=== PATIENT | male | born 1965 | race American Indian/Alaskan Native ===

== ENCOUNTER 2017-04-01 20:06 | Emergency (ER) | payer OTHER ==
[2017-04-01 20:53] LABS: Basophils % (Auto) 0.5 % (0.0-1.8); Eosinophils % (Auto) 3.9 % (0.0-4.3); Hemoglobin 12.8 gm/dl (11.8-15.2); Mean Corpuscular HGB Conc 33 % (32-34); Mean Corpuscular Hemoglobin 29 pg (28-32); Mean Corpuscular Volume 87 fl (84-94); Platelet Count 219 K/mm3 (140-440); Red Blood Count 4.47 M/mm3 (3.65-5.03); White Blood Count 7.5 K/mm3 (4.5-11.0)
[2017-04-01 21:03] LABS: INR 1.03 (0.87-1.13)
[2017-04-01 21:08] LABS: Alanine Aminotransferase 20 units/L (7-56); Albumin 4.2 g/dL (3.9-5); Albumin/Globulin Ratio 1.4 %; Alkaline Phosphatase 61 units/L (35-129); Anion Gap 15 mmol/L; BUN/Creatinine Ratio 18.75; Blood Urea Nitrogen 15 mg/dL (9-20); Calcium 8.9 mg/dL (8.4-10.2); Carbon Dioxide 27 mmol/L (22-30); Chloride 104.2 mmol/L (98-107); Glucose 100 mg/dL (75-100); Potassium 3.9 mmol/L (3.6-5.0); Sodium 142 mmol/L (137-145); Total Protein 7.1 g/dL (6.3-8.2)
--- NOTE | 2017-04-01 21:28 | Emergency Department Report ---
ED Extremity Problem HPI - General Chief complaint: Extremity Injury, Lower Stated complaint: SWOLLEN RT LEG Time Seen by Provider: 04/01/17 21:27 Source: patient Mode of arrival: Ambulatory Limitations: No Limitations - History of Present Illness Initial comments: Pt is a 51 yr old male with a h/o HTN who presents with R lower leg pain. Pt reports he banged his christina on the corner of the bed last week and now is c/o R leg pain, swelling, warmth, and calf pain. Pt reports concern for a blood clot. Otherwise no fevers, chills, HECTOR, dizziness, NVD, hempotysis, bleeding disorder, h/o DVT, CP, SOB, abd pain, difficutly with ambulation, travel, or sick contacts. - Related Data Previous Rx's Medication Instructions Recorded Last Taken Type Enoxaparin [Lovenox] 100 mg SUB-Q ONCE #10 syringe 04/01/17 Unknown Rx Lisinopril [Zestril TAB] 40 mg PO QDAY #30 tablet 04/01/17 Unknown Rx Metoprolol [Lopressor TAB] 25 mg PO QDAY #30 tablet 04/01/17 Unknown Rx Allergies Allergy/AdvReac Type Severity Reaction Status Date / Time No Known Allergies Allergy Verified 06/18/16 13:50 ED Review of Systems ROS: Stated complaint: SWOLLEN RT LEG Other details as noted in HPI Comment: All other systems reviewed and negative ED Past Medical Hx - Past Medical History Hx Hypertension: Yes (out of meds) Hx Psychiatric Treatment: Yes (ANXIETY) - Surgical History Past Surgical History?: No - Social History Smoking Status: Current Every Day Smoker Substance Use Type: Alcohol - Medications Home Medications: Home Medications Medication Instructions Recorded Confirmed Last Taken Type Enoxaparin [Lovenox] 100 mg SUB-Q ONCE #10 syringe 04/01/17 Unknown Rx Lisinopril [Zestril TAB] 40 mg PO QDAY #30 tablet 04/01/17 Unknown Rx Metoprolol [Lopressor TAB] 25 mg PO QDAY #30 tablet 04/01/17 Unknown Rx ED Physical Exam - General Limitations: No Limitations General appearance: alert, in no apparent distress - Head Head exam: Present: atraumatic, normocephalic - Eye Eye exam: Present: normal appearance - ENT ENT exam: Present: mucous membranes moist - Neck Neck exam: Present: normal inspection - Respiratory Respiratory exam: Present: normal lung sounds bilaterally. Absent: respiratory distress - Cardiovascular Cardiovascular Exam: Present: regular rate, normal rhythm. Absent: systolic murmur, diastolic murmur, rubs, gallop - GI/Abdominal GI/Abdominal exam: Present: soft, normal bowel sounds - Rectal Rectal exam: Present: deferred - Extremities Exam Extremities exam: Present: full ROM, tenderness, calf tenderness, other (Mild swelling of RLE below the knee, warm to touch) - Back Exam Back exam: Present: normal inspection - Neurological Exam Neurological exam: Present: alert, oriented X3 - Psychiatric Psychiatric exam: Present: normal affect, normal mood - Skin Skin exam: Present: warm, dry, intact, normal color. Absent: rash ED Course Vital Signs 04/01/17 20:20 Temperature 98.6 F Pulse Rate 78 Respiratory 20 Rate Blood Pressure 184/116 O2 Sat by Pulse 100 Oximetry ED Medical Decision Making - Lab Data Result diagrams: 04/01/17 20:31 04/01/17 20:31 - Medical Decision Making Discussion had with patient at the bedside. Will treat him for cellulitis and DVT given clinical history, evaluation, and elevated D-Dimer Pt to return tomorrow to have the US of his RLE done to evaluate for DVT. Pt understood and agrees with plan Critical care attestation.: If time is entered above; I have spent that time in minutes in the direct care of this critically ill patient, excluding procedure time. ED Disposition Clinical Impression: Leg pain, right, Suspected deep vein thrombosis (DVT), Cellulitis, HTN ( hypertension) Disposition: TO HOME OR SELFCARE Is pt being admited?: No Condition: Stable Instructions: Deep Venous Thrombosis (ED), Cellulitis (ED), Hypertension (ED), Chronic Hypertension (ED) Additional Instructions: Please return to the hospital tomorrow as an outpatient for your ultrasound of your leg Continue the blood clot medication (injections) and its very IMPORTANT for you to follow up with your PMD if you do have a DVT so you can be placed on intermediate blood thinners Continue all antibiotics till you finish them Prescriptions: Enoxaparin [Lovenox] 100 mg SUB-Q ONCE #10 syringe Lisinopril [Zestril TAB] 40 mg PO QDAY #30 tablet Metoprolol [Lopressor TAB] 25 mg PO QDAY #30 tablet Referrals: PRIMARY CARE, [Primary Care Provider] - 3-5 Days
[2017-04-01] MEDS ORDERED: LOVENOX SUB-Q ONE (21:44)
[2017-04-01] MEDS ORDERED: LOPRESSOR PO ONE (22:01)
[2017-04-01 22:45] VITALS: BP 166/90
== END 2017-04-01 22:44 | disposition home or self-care (01) ==
LOC: ED 20:06
DX: L03.115 Cellulitis of right lower limb (principal); I10 Essential (primary) hypertension; M79.661 Pain in right lower leg; F41.9 Anxiety disorder, unspecified; F17.200 Nicotine dependence, unspecified, uncomplicated
CPT/HCPCS: 36415; 80053; 85025; 85379; 85610; 96372; 99283; J1650

== ENCOUNTER 2017-04-02 13:30 | Outpatient (CLI) | payer OTHER ==
--- NOTE | 2017-04-04 07:39 | Vascular Lab Report ---
Right Lower Extremity Venous Duplex Study: Reason for Exam: Pain and swelling of the right lower extremity. Comments on the Right: All veins visualized are freely compressible without evidence of internal echogenicity. Flow is spontaneous and phasic throughout. No evidence of acute or chronic thrombus is seen in any of the vessels visualized. Soft tissue density noted in the right calf appears to be a fluid collection that could potentially represent a ruptured Adam's cyst. Comments on the Left: A limited duplex study was done of the proximal veins of the left lower extremity. All veins visualized are freely compressible without evidence of internal echogenicity. Flow is spontaneous and phasic throughout. No evidence of acute or chronic thrombus is seen in any of the vessels visualized. Impression: No evidence of acute or chronic deep venous thrombosis in the right lower extremity.
== END 2017-04-02 13:31 | disposition home or self-care (01) ==
LOC: VAS 13:30
PROVIDERS: ATTEND Emergency Medicine
DX: M79.604 Pain in right leg (principal); M79.89 Other specified soft tissue disorders; I10 Essential (primary) hypertension; F41.9 Anxiety disorder, unspecified; F17.200 Nicotine dependence, unspecified, uncomplicated

== ENCOUNTER 2017-10-01 20:10 | Emergency (ER) | payer OTHER ==
[2017-10-01] MEDS ORDERED: CATAPRES ONE (20:47)
[2017-10-01] MEDS ORDERED: CATAPRES PO ONE (20:48)
[2017-10-01 21:15] LABS: Basophils % (Auto) 0.5 % (0.0-1.8); Eosinophils # (Auto) 0.2 K/mm3 (0.0-0.4); Eosinophils % (Auto) 2.7 % (0.0-4.3); Hematocrit 41.1 % (35.5-45.6); Hemoglobin 13.6 gm/dl (11.8-15.2); Lymphocytes # (Auto) 3.3 K/mm3 (1.2-5.4); Lymphocytes % (Auto) 42.2 % (13.4-35.0); Mean Corpuscular HGB Conc 33 % (32-34); Mean Corpuscular Hemoglobin 29 pg (28-32); Mean Corpuscular Volume 87 fl (84-94); Monocytes # (Auto) 0.8 K/mm3 (0.0-0.8); Monocytes % (Auto) 9.6 % (0.0-7.3); Platelet Count 209 K/mm3 (140-440); Red Blood Count 4.71 M/mm3 (3.65-5.03); Red Cell Distribution Width 15.3 % (13.2-15.2)
[2017-10-01 21:29] LABS: BUN/Creatinine Ratio 19; Blood Urea Nitrogen 15 mg/dL (9-20); Calcium 9.1 mg/dL (8.4-10.2); Hemolysis Index 10
[2017-10-01 21:58] LABS: Bilirubin,Urine NEG (Negative); Blood,Urine NEG (Negative); Color,Urine Yellow (Yellow); Mucus,Urine FEW /HPF; Nitrite,Urine NEG (Negative); Protein,Urine <15 mg/dL mg/dL (Negative); Urobilinogen,Urine < 2.0 mg/dL (<2.0)
[2017-10-02 08:11] VITALS: BP 159/101
[2017-10-02] MEDS ORDERED: TYLENOL PO ONE (09:11)
[2017-10-02] MEDS ORDERED: MOTRIN PO ONE (09:11)
--- NOTE | 2017-10-02 09:15 | Emergency Department Report ---
ED General Adult HPI - General Chief complaint: Chest Pain Stated complaint: CHEST PAIN Time Seen by Provider: 10/02/17 06:53 Source: patient, RN notes reviewed, old records reviewed Mode of arrival: Ambulatory Limitations: No Limitations - History of Present Illness Initial comments: This is a 51-year-old male who was previously unknown to this provider, he has a past medical history of hypertension, and is poorly compliant with his antihypertensive medication, and he requests a refill on his lisinopril, 40 mg. Patient presents to the ER with multiple complaints. His first complaint is tingling and pain on the distal aspects of his left pinky , and left ring finger. This sensation is from the joint distal. It has been going on for a few days, it is constant, it does not have exacerbating or relieving factors and it does not radiate anywhere. His next complaint is left inguinal pain. It has been present for a few days, does not radiate anywhere, increases with palpation and decreases with rest. His next complaint is left posterior hamstring pain, and left lateral thigh pain. There is no calf pain. There is no calf swelling. No DVT or pulmonary embolus risk factors. His next complaint is left plantar foot pain. It does not radiate anywhere, increases with palpation, and it decreases with rest. His next complaint is left lateral pectoral wall pain. The pain does not radiate to the back, arms or neck. There is no vomiting, diaphoresis, and contrary to what is documented in triage nurse note, patient to me denies shortness of breath. This pain has been present for a few days. He does not have exacerbating or relieving factors with the exception of palpation which increases his pain. No recent cocaine use, no recent aspirin use -: Gradual Location: chest, abdomen, left, upper extremity, lower extremity Radiation: non-radiation Severity scale (0 -10): 5 Quality: aching Consistency: intermittent Improves with: other (per hi) Worsens with: other (per hpi) Associated Symptoms: denies: confusion, cough, diaphoresis, fever/chills, headaches, loss of appetite, malaise, nausea/vomiting, rash, seizure, shortness of breath, syncope, weakness - Related Data Previous Rx's Medication Instructions Recorded Last Taken Type Cephalexin [Keflex] 500 mg PO Q12HR #20 cap 04/01/17 Unknown Rx Enoxaparin [Lovenox] 100 mg SUB-Q ONCE #10 syringe 04/01/17 Unknown Rx Sulfamethoxazole/Trimethoprim 1 each PO BID #20 tablet 04/01/17 Unknown Rx [Bactrim DS TAB] HYDROcodone/APAP 5-325 [Dequincy 1 each PO Q6HR PRN #10 tablet 04/02/17 Unknown Rx 5/325] Acetaminophen [Tylenol Arthritis] 650 mg PO Q6HR PRN #30 tablet.er 10/02/17 Unknown Rx Aspirin [Aspirin BABY CHEW TAB] 81 mg PO QDAY #30 tab.chew 10/02/17 Unknown Rx Lisinopril [Zestril TAB] 40 mg PO QDAY #30 tablet 10/02/17 Unknown Rx Allergies Allergy/AdvReac Type Severity Reaction Status Date / Time No Known Allergies Allergy Verified 06/18/16 13:50 ED Review of Systems ROS: Stated complaint: CHEST PAIN Other details as noted in HPI ED Past Medical Hx - Past Medical History Previous Medical History?: Yes Hx Hypertension: Yes (out of meds) Hx Psychiatric Treatment: Yes (ANXIETY) - Social History Smoking Status: Current Every Day Smoker - Medications Home Medications: Home Medications Medication Instructions Recorded Confirmed Last Taken Type Cephalexin [Keflex] 500 mg PO Q12HR #20 cap 04/01/17 Unknown Rx Enoxaparin [Lovenox] 100 mg SUB-Q ONCE #10 syringe 04/01/17 Unknown Rx Sulfamethoxazole/Trimethoprim 1 each PO BID #20 tablet 04/01/17 Unknown Rx [Bactrim DS TAB] HYDROcodone/APAP 5-325 [Dequincy 1 each PO Q6HR PRN #10 tablet 04/02/17 Unknown Rx 5/325] Acetaminophen [Tylenol Arthritis] 650 mg PO Q6HR PRN #30 tablet.er 10/02/17 Unknown Rx Aspirin [Aspirin BABY CHEW TAB] 81 mg PO QDAY #30 tab.chew 10/02/17 Unknown Rx Lisinopril [Zestril TAB] 40 mg PO QDAY #30 tablet 10/02/17 Unknown Rx ED Physical Exam - General Limitations: No Limitations General appearance: alert, in no apparent distress - Head Head exam: Present: atraumatic, normocephalic - Eye Eye exam: Present: normal appearance, PERRL, EOMI. Absent: nystagmus - ENT ENT exam: Present: normal exam, normal orophraynx, mucous membranes moist, normal external ear exam - Neck Neck exam: Present: normal inspection, full ROM. Absent: tenderness, meningismus - Respiratory Respiratory exam: Present: normal lung sounds bilaterally, chest wall tenderness (reproducible left lateral pectoral wall pain.). Absent: respiratory distress - Cardiovascular Cardiovascular Exam: Present: regular rate, normal rhythm, normal heart sounds. Absent: systolic murmur, diastolic murmur, rubs, gallop - GI/Abdominal GI/Abdominal exam: Present: soft, normal bowel sounds. Absent: distended, tenderness, guarding, rebound, rigid, pulsatile mass - Rectal Rectal exam: Present: deferred - exam: Present: normal inspection. Absent: testicular tenderness External exam: Present: normal external exam, other (there is no testicular tenderness. There is normal testicular lie bilaterally. There is normal cremasteric reflex bilaterally.) - Extremities Exam Extremities exam: Present: normal inspection, full ROM, normal capillary refill , other (55 strength bilateral upper and lower extremities. Sensation intact to light touch, pinprick, proprioception in the bilateral upper and lower extremities. There is no long bony tenderness, and the compartments are soft, there is specifically no deficits in sensation on my exam in the left upper extremity in terms of the digits. The compartments are soft, there is no palpable cord, there is no inguinal adenopathy, the left leg is nontender, there is no swelling. There is left plantar foot tenderness, there is right plantar foot tenderness. Patient able to walk with a steady gait.). Absent: tenderness, pedal edema, joint swelling, calf tenderness - Back Exam Back exam: Present: normal inspection, full ROM. Absent: tenderness, CVA tenderness (R), paraspinal tenderness, vertebral tenderness - Neurological Exam Neurological exam: Present: alert, oriented X3, CN II-XII intact, normal gait, other (Extraocular movements intact. Tongue midline. No facial droop. Facial sensation intact to light touch in the V1, V2, V3 distribution bilaterally. 5 and 5 strength in 4 extremities.. Sensation is intact to light touch in 4 extremities.). Absent: motor sensory deficit - Psychiatric Psychiatric exam: Present: normal affect, normal mood - Skin Skin exam: Present: warm, dry, intact, normal color. Absent: rash ED Course Vital Signs 12/10/01/17 10/02/17 20:23 20:49 03:51 Temperature 97.8 F 98.0 F Pulse Rate 76 74 68 Respiratory 20 18 Rate Blood Pressure 190/107 190/107 177/89 O2 Sat by Pulse 99 99 Oximetry 10/02/17 10/02/17 07:01 08:01 Temperature Pulse Rate 55 L 52 L Respiratory 16 16 Rate Blood Pressure 157/83 159/101 O2 Sat by Pulse Oximetry ED Medical Decision Making - Lab Data Result diagrams: 10/01/17 20:49 10/01/17 20:49 Vital Signs 10/01/17 10/01/17 10/02/17 20:23 20:49 03:51 Temperature 97.8 F 98.0 F Pulse Rate 76 74 68 Respiratory 20 18 Rate Blood Pressure 190/107 190/107 177/89 O2 Sat by Pulse 99 99 Oximetry 10/02/17 10/02/17 07:01 08:01 Temperature Pulse Rate 55 L 52 L Respiratory 16 16 Rate Blood Pressure 157/83 159/101 O2 Sat by Pulse Oximetry Lab Results 10/01/17 10/01/17 10/01/17 Range/Units 20:49 20:49 21:32 WBC 7.9 (4.5-11.0) K/mm3 RBC 4.71 (3.65-5.03) M/mm3 Hgb 13.6 (11.8-15.2) gm/dl Hct 41.1 (35.5-45.6) % MCV 87 (84-94) fl MCH 29 (28-32) pg MCHC 33 (32-34) % RDW 15.3 H (13.2-15.2) % Plt Count 209 (140-440) K/mm3 Lymph % (Auto) 42.2 H (13.4-35.0) % [place] % (Auto) 9.6 H (0.0-7.3) % Eos % (Auto) 2.7 (0.0-4.3) % Baso % (Auto) 0.5 (0.0-1.8) % Lymph # 3.3 (1.2-5.4) K/mm3 [place] # 0.8 (0.0-0.8) K/mm3 Eos # 0.2 (0.0-0.4) K/mm3 Baso # 0.0 (0.0-0.1) K/mm3 Seg Neutrophils % 45.0 (40.0-70.0) % Seg Neutrophils # 3.6 (1.8-7.7) K/mm3 Sodium 139 (137-145) mmol/L Potassium 4.2 (3.6-5.0) mmol/L Chloride 101.9 (98-107) mmol/L Carbon Dioxide 24 (22-30) mmol/L Anion Gap 17 mmol/L BUN 15 (9-20) mg/dL Creatinine 0.8 (0.8-1.5) mg/dL Estimated GFR > 60 ml/min BUN/Creatinine Ratio 19 % Glucose 94 (75-100) mg/dL Calcium 9.1 (8.4-10.2) mg/dL Troponin T < 0.010 (0.00-0.029) ng/mL Urine Color Yellow (Yellow) Urine Turbidity Clear (Clear) Urine pH 6.0 (5.0-7.0) Ur Specific [place] 1.021 (1.003-1.030) Urine Protein <15 mg/dl (Negative) mg/dL Urine Glucose (UA) Neg (Negative) mg/dL Urine Ketones Neg (Negative) mg/dL Urine Blood Neg (Negative) Urine Nitrite Neg (Negative) Urine Bilirubin Neg (Negative) Urine Urobilinogen < 2.0 (<2.0) mg/dL Ur Leukocyte Esterase Neg (Negative) Urine WBC (Auto) 1.0 (0.0-6.0) /HPF Urine RBC (Auto) 2.0 (0.0-6.0) /HPF Urine Mucus Few /HPF 10/01/17 10/02/17 Range/Units 23:44 02:52 WBC (4.5-11.0) K/mm3 RBC (3.65-5.03) M/mm3 Hgb (11.8-15.2) gm/dl Hct (35.5-45.6) % MCV (84-94) fl MCH (28-32) pg MCHC (32-34) % RDW (13.2-15.2) % Plt Count (140-440) K/mm3 Lymph % (Auto) (13.4-35.0) % [place] % (Auto) (0.0-7.3) % Eos % (Auto) (0.0-4.3) % Baso % (Auto) (0.0-1.8) % Lymph # (1.2-5.4) K/mm3 [place] # (0.0-0.8) K/mm3 Eos # (0.0-0.4) K/mm3 Baso # (0.0-0.1) K/mm3 Seg Neutrophils % (40.0-70.0) % Seg Neutrophils # (1.8-7.7) K/mm3 Sodium (137-145) mmol/L Potassium (3.6-5.0) mmol/L Chloride (98-107) mmol/L Carbon Dioxide (22-30) mmol/L Anion Gap mmol/L BUN (9-20) mg/dL Creatinine (0.8-1.5) mg/dL Estimated GFR ml/min BUN/Creatinine Ratio % Glucose (75-100) mg/dL Calcium (8.4-10.2) mg/dL Troponin T < 0.010 < 0.010 (0.00-0.029) ng/mL Urine Color (Yellow) Urine Turbidity (Clear) Urine pH (5.0-7.0) Ur Specific [place] (1.003-1.030) Urine Protein (Negative) mg/dL Urine Glucose (UA) (Negative) mg/dL Urine Ketones (Negative) mg/dL Urine Blood (Negative) Urine Nitrite (Negative) Urine Bilirubin (Negative) Urine Urobilinogen (<2.0) mg/dL Ur Leukocyte Esterase (Negative) Urine WBC (Auto) (0.0-6.0) /HPF Urine RBC (Auto) (0.0-6.0) /HPF Urine Mucus /HPF - EKG Data 10/02/17 09:16 EKG #1 demonstrates sinus, 71 bpm, normal axis, normal intervals, not morphologically consistent with ST elevation myocardial infarction, EKG #2 was also unremarkable and unchanged. - Radiology Data Radiology results: pending - Medical Decision Making Differential diagnosis, including but not limited to: Arthritis, musculoskeletal pain, atypical presentation of acute coronary syndrome, fully controlled blood pressure, medication noncompliance Assessment and plan: 51-year-old male with complaint of left pinky and ring finger pain/numbness, left inguinal discomfort, left thigh and hamstring discomfort, left plantar flex discomfort, left lateral chest wall discomfort. Objectively speaking has an appropriate and normal neurologic examination, with numerous sensory modalities, including pinprick, light touch and proprioception are intact. Equal pulses in the bilateral upper and lower extremities, compartments are soft walks with a steady gait, no clinical evidence of cellulitis, infectious process or DVT, low risk by well's criteria, and no thromboembolic risk factors by history. Complains of left lateral pectoral wall pain, which is reproducible, troponin negative 3, EKG shows high left ventricular voltage, theclinicalhistoryandphysical,IfindthepatienttobelowriskbyTIMIscore, lowriskbyheartscore.Hislisinoprilwasrefilled,Iwill hold metoprolol given bradycardia. Case discussed with cardiology on-call, Dr. Ruth, he agrees that patient is suitable to follow up as an outpatient for his elevated blood pressure and atypical chest wall discomfort. Critical care attestation.: If time is entered above; I have spent that time in minutes in the direct care of this critically ill patient, excluding procedure time. ED Disposition Clinical Impression: Chest wall pain, Elevated blood pressure reading Disposition: DC-01 TO HOME OR SELFCARE Is pt being admited?: No Does the pt Need Aspirin: No Condition: Stable Instructions: Chest Pain (ED) Additional Instructions: Take the medications as directed. Follow-up with any of the listed cardiology groups/services within the next 3-5 days. Please note that blood pressure was elevated, and this easily followed up I primary care doctor or granulizing machine operator as recommended. Return to the ER right away with new pain, worsened pain, migration of pain, fevers, chills, lethargy, irritability, projectile vomiting, change in mental status, confusion, inability to tolerate liquid feeds. Please of the blood pressure was very elevated, and should be followed up as recommended. Please note further that long-term complications of hypertension and elevated blood pressure includes stroke, heart attack, disability, , paralysis, loss of quality of life. Therefore, it is very important to take her blood pressure medication. Please contact and illicit office support specialist, but the note that you were in the ER and they would like to have follow-up within the next week. I have specifically spoken to the granulizing machine operator Dr. Ruth, who is amenable to seeing you in the recommended timeframe. Prescriptions: Lisinopril [Zestril TAB] 40 mg PO QDAY #30 tablet Referrals: KEYON PENA MD [Primary Care Provider] - 3-5 Days JESSICA RUTH MD [Staff Physician] - 3-5 Days [facility] [Provider Group] - 3-5 Days [facility] [Provider Group] - 3-5 Days
== END 2017-10-02 09:38 | disposition home or self-care (01) ==
LOC: ED 20:10
DX: R07.89 Other chest pain (principal); I10 Essential (primary) hypertension; M79.672 Pain in left foot; M79.645 Pain in left finger(s); M79.652 Pain in left thigh; F17.200 Nicotine dependence, unspecified, uncomplicated; F41.9 Anxiety disorder, unspecified
CPT/HCPCS: 36415; 80048; 81001; 84484; 85025; 93005; 93010; 99284

== ENCOUNTER 2017-10-10 03:02 | Emergency (ER) | payer SELFPAY ==
[2017-10-10] MEDS ORDERED: CATAPRES ONE (03:32)
[2017-10-10] MEDS ORDERED: CATAPRES PO ONE (03:40)
[2017-10-10 04:10] LABS: Hematocrit 42.4 % (35.5-45.6); Hemoglobin 14.5 gm/dl (11.8-15.2); Mean Corpuscular HGB Conc 34 % (32-34); Mean Corpuscular Hemoglobin 29 pg (28-32); Mean Corpuscular Volume 86 fl (84-94); Platelet Count 197 K/mm3 (140-440); Red Blood Count 4.93 M/mm3 (3.65-5.03)
[2017-10-10 04:21] LABS: INR 0.91 (0.87-1.13)
[2017-10-10 04:22] LABS: Partial Thromboplastin Time 26.9 Sec. (24.2-36.6)
[2017-10-10 04:25] LABS: BUN/Creatinine Ratio 11; Blood Urea Nitrogen 10 mg/dL (9-20); Calcium 8.6 mg/dL (8.4-10.2); Hemolysis Index 11
--- NOTE | 2017-10-10 04:26 | Cat Scan Report ---
FINAL REPORT EXAM: CT HEAD/BRAIN WO CON HISTORY: Headache w/ BP 208/117 TECHNIQUE: CT imaging acquired through the head without intravenous contrast. Transaxial reformations are provided. PRIORS: None. FINDINGS: The ventricles, cisterns and sulci are within normal limits. No intraparenchymal or extra-axial mass, hemorrhage, or mass effect. Encarn[place] and white-matter differentiation is within normal limits for patient age. Normal spherical shape of the globes. No significant abnormality involving the imaged portions of the paranasal sinuses and mastoid air cells. No skull or facial fracture visualized. IMPRESSION: No acute intracranial abnormality.
--- NOTE | 2017-10-10 16:12 | Emergency Department Report ---
ED General Adult HPI - General Chief complaint: Headache Stated complaint: ALLERGIC REACTION Time Seen by Provider: 10/10/17 15:41 Source: patient Mode of arrival: Ambulatory Limitations: No Limitations - History of Present Illness Initial comments: The patient is here with I presume his . They have decided that his "lisinopril is not working'. According to them, he is taking 40 mg of plain lisinopril daily. They state he was previously on a diuretic and a calcium channel kvng which worked better. Over the past 3 days they state they have been monitoring the blood pressure and it has been elevated. The patient denies any tongue swelling. He has a "infected tooth". He does have some lip and perhaps some slight facial swelling which they are associated with a tooth or gum infection. He has never had any sort of angioedema or allergic reaction to an RHIANNON inhibitor in the past. In any case, clearly they do not want to continue his lisinopril. Patient has had some mild headache. He denies any focal neurological change, no difficulty with speech or gait or any visual change. He was given 0.2 of clonidine long prior to my arrival in the very early a.m. I 've taken his blood pressure on both sides there is no differential. It has been in the normal range for several readings now. -: days(s) Location: head Quality: dull Consistency: now resolved Improves with: none Worsens with: none Associated Symptoms: denies other symptoms Treatments Prior to Arrival: none - Related Data Previous Rx's Medication Instructions Recorded Last Taken Type Cephalexin [Keflex] 500 mg PO Q12HR #20 cap 04/01/17 Unknown Rx Enoxaparin [Lovenox] 100 mg SUB-Q ONCE #10 syringe 04/01/17 Unknown Rx Sulfamethoxazole/Trimethoprim 1 each PO BID #20 tablet 04/01/17 Unknown Rx [Bactrim DS TAB] HYDROcodone/APAP 5-325 [[place] 1 each PO Q6HR PRN #10 tablet 04/02/17 Unknown Rx 5/325] Acetaminophen [Tylenol Arthritis] 650 mg PO Q6HR PRN #30 tablet.er 10/02/17 Unknown Rx Aspirin [Aspirin BABY CHEW TAB] 81 mg PO QDAY #30 tab.chew 10/02/17 Unknown Rx Lisinopril [Zestril TAB] 40 mg PO QDAY #30 tablet 10/02/17 Unknown Rx Penicillin V Potassium 500 mg PO QID #30 tablet 10/10/17 Unknown Rx Triamterene/Hydrochlorothiazid 1 each PO QDAY #30 capsule 10/10/17 Unknown Rx [Dyazide 37.5-25 Capsule] amLODIPine [Norvasc] 5 mg PO DAILY #30 tab 10/10/17 Unknown Rx Allergies Allergy/AdvReac Type Severity Reaction Status Date / Time No Known Allergies Allergy Verified 06/18/16 13:50 ED Review of Systems ROS: Stated complaint: ALLERGIC REACTION Other details as noted in HPI Constitutional: denies: chills, fever Eyes: denies: eye pain, eye discharge, vision change ENT: denies: ear pain, throat pain Respiratory: denies: cough, shortness of breath, wheezing Cardiovascular: denies: chest pain, palpitations Endocrine: no symptoms reported Gastrointestinal: denies: abdominal pain, nausea, diarrhea Genitourinary: denies: urgency, dysuria Musculoskeletal: denies: back pain, joint swelling, arthralgia Skin: denies: rash, lesions Neurological: headache. denies: weakness, paresthesias Psychiatric: denies: anxiety, depression Hematological/Lymphatic: denies: easy bleeding, easy bruising ED Past Medical Hx - Past Medical History Previous Medical History?: Yes Hx Hypertension: Yes (out of meds) Hx Psychiatric Treatment: Yes (ANXIETY) - Social History Smoking Status: Unknown if ever smoked Substance Use Type: None - Medications Home Medications: Home Medications Medication Instructions Recorded Confirmed Last Taken Type Cephalexin [Keflex] 500 mg PO Q12HR #20 cap 04/01/17 Unknown Rx Enoxaparin [Lovenox] 100 mg SUB-Q ONCE #10 syringe 04/01/17 Unknown Rx Sulfamethoxazole/Trimethoprim 1 each PO BID #20 tablet 04/01/17 Unknown Rx [Bactrim DS TAB] HYDROcodone/APAP 5-325 [[place] 1 each PO Q6HR PRN #10 tablet 04/02/17 Unknown Rx 5/325] Acetaminophen [Tylenol Arthritis] 650 mg PO Q6HR PRN #30 tablet.er 10/02/17 Unknown Rx Aspirin [Aspirin BABY CHEW TAB] 81 mg PO QDAY #30 tab.chew 10/02/17 Unknown Rx Lisinopril [Zestril TAB] 40 mg PO QDAY #30 tablet 10/02/17 Unknown Rx Penicillin V Potassium 500 mg PO QID #30 tablet 10/10/17 Unknown Rx Triamterene/Hydrochlorothiazid 1 each PO QDAY #30 capsule 10/10/17 Unknown Rx [Dyazide 37.5-25 Capsule] amLODIPine [Norvasc] 5 mg PO DAILY #30 tab 10/10/17 Unknown Rx ED Physical Exam - General Limitations: No Limitations General appearance: alert, in no apparent distress - Head Head exam: Present: atraumatic, normocephalic - Eye Eye exam: Present: normal appearance - ENT ENT exam: Present: mucous membranes moist, other (patient has a fractured frontal incisor. There is gingival reaction. There is a minimal amount of edema and warmth of the upper lip. The tongue is not swollen. The oropharynx is otherwise normal.) - Neck Neck exam: Present: normal inspection, lymphadenopathy (mild bilateral lymphadenopathy anterior cervical). Absent: tenderness, meningismus - Respiratory Respiratory exam: Present: normal lung sounds bilaterally. Absent: respiratory distress - Cardiovascular Cardiovascular Exam: Present: regular rate, normal rhythm. Absent: systolic murmur, diastolic murmur, rubs, gallop - GI/Abdominal GI/Abdominal exam: Present: soft, normal bowel sounds. Absent: distended, tenderness, guarding, rebound - Rectal Rectal exam: Present: deferred - Extremities Exam Extremities exam: Present: normal inspection - Back Exam Back exam: Present: normal inspection - Neurological Exam Neurological exam: Present: alert, oriented X3, CN II-XII intact. Absent: motor sensory deficit - Psychiatric Psychiatric exam: Present: normal affect, normal mood - Skin Skin exam: Present: warm, dry, intact, normal color. Absent: rash ED Course Vital Signs 10/10/17 10/10/17 10/10/17 03:11 03:33 03:42 Temperature 99.1 F 99.1 F Pulse Rate 80 86 86 Respiratory 18 18 Rate Blood Pressure 208/117 208/117 208/117 Blood Pressure [Right] O2 Sat by Pulse 98 97 Oximetry 10/10/17 05:25 Temperature Pulse Rate 62 Respiratory Rate Blood Pressure Blood Pressure 102/55 [Right] O2 Sat by Pulse Oximetry - Reevaluation(s) Reevaluation #1: Blood pressure improved. The patient is appropriate for outpatient disposition and management. Headache spontaneously resolved. 10/10/17 16:28 ED Medical Decision Making - Lab Data Result diagrams: 10/10/17 03:51 10/10/17 03:51 Laboratory Results - last 24 hr 10/10/17 10/10/17 10/10/17 03:51 03:51 03:51 WBC 6.1 RBC 4.93 Hgb 14.5 Hct 42.4 MCV 86 MCH 29 MCHC 34 RDW 15.0 Plt Count 197 PT 12.7 INR 0.91 APTT 26.9 Sodium 135 L Potassium 3.9 Chloride 97.8 L Carbon Dioxide 23 Anion Gap 18 BUN 10 Creatinine 0.9 Estimated GFR > 60 BUN/Creatinine Ratio 11 Glucose 119 H Calcium 8.6 - Radiology Data Radiology results: report reviewed (CT the head showed no acute finding) Critical care attestation.: If time is entered above; I have spent that time in minutes in the direct care of this critically ill patient, excluding procedure time. ED Disposition Clinical Impression: Hypertension, uncontrolled, Dental infection Disposition: OP ADMIT IP TO THIS HOSP Is pt being admited?: No Does the pt Need Aspirin: No Condition: Stable Instructions: Hypertension (ED) Additional Instructions: Follow-up with primary care physician. See possible referrals. See dentist concerning your infected tooth. Stop lisinopril. Prescriptions: amLODIPine [Norvasc] 5 mg PO DAILY #30 tab Penicillin V Potassium 500 mg PO QID #30 tablet Triamterene/Hydrochlorothiazid [Dyazide 37.5-25 Capsule] 1 each PO QDAY #30 capsule Referrals: KEYON PENA MD [Primary Care Provider] - 2-3 Days NIRANJAN MURILLO MD [Staff Physician] - 2-3 Days [facility] [Provider Group] - 2-3 Days Time of Disposition: 16:31
[2017-10-10 17:54] VITALS: BP 134/76
== END 2017-10-10 17:05 | disposition admitted as inpatient to this hospital (09) ==
LOC: ED 03:02
DX: I10 Essential (primary) hypertension (principal); F41.9 Anxiety disorder, unspecified; Z79.82 Long term (current) use of aspirin
CPT/HCPCS: 36415; 70450; 80048; 85027; 85610; 85730; 99284

== ENCOUNTER 2020-04-24 07:30 | Emergency (ER) | payer OTHER ==
[2020-04-24 07:37] VITALS: BP 170/92
[2020-04-24] MEDS ORDERED: IBUPROFEN 600 MG TAB PO ONE (08:58)
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
== END 2020-04-24 09:47 | disposition home or self-care (01) ==
LOC: ED 07:30
DX: M25.561 Pain in right knee (principal); I10 Essential (primary) hypertension; F41.9 Anxiety disorder, unspecified; F17.200 Nicotine dependence, unspecified, uncomplicated; Z79.82 Long term (current) use of aspirin; Z79.899 Other long term (current) drug therapy
CPT/HCPCS: 99283

== ENCOUNTER 2020-11-04 17:26 | Emergency (ER) | payer SELFPAY ==
[2020-11-04 17:37] VITALS: BP 145/71
--- NOTE | 2020-11-04 18:04 | Emergency Department Report ---
ED General Adult HPI - General Chief complaint: Hyperglycemia Stated complaint: HIGH BLOOD SUGAR PUI?: No Source: patient Mode of arrival: Ambulatory Limitations: No Limitations - History of Present Illness Initial comments: 54-year-old -[place] male with no significant past medical history presents emerged department complaining of having some weakness and lightheadedness associated with some blurred vision earlier today. He has had to take his blood sugar using his 's meter and states that it read high so he took a Metformin and came into the emergency department a few hours after. Reports no fever, chills, sweats reports no chest pain palpitation reports no nausea vomiting. Reports continued blurred vision off and on and fluctuating fatigue Improves with: none Worsens with: none Associated Symptoms: denies other symptoms Treatments Prior to Arrival: other - Related Data Previous Rx's Medication Instructions Recorded Last Taken Type Enoxaparin 100 mg SUB-Q ONCE #10 syringe 04/01/17 Unknown Rx Sulfamethoxazole/Trimethoprim 1 each PO BID #20 tablet 04/01/17 Unknown Rx [Bactrim DS TAB] cephALEXin [Keflex] 500 mg PO Q12HR #20 cap 04/01/17 Unknown Rx HYDROcodone/APAP 5-325 [[place] 1 each PO Q6HR PRN #10 tablet 04/02/17 Unknown Rx 5/325] Acetaminophen [Tylenol Arthritis] 650 mg PO Q6HR PRN #30 tablet.er 10/02/17 Unknown Rx Aspirin [Aspirin BABY CHEW TAB] 81 mg PO QDAY #30 tab.chew 10/02/17 Unknown Rx lisinopriL [Zestril TAB] 40 mg PO QDAY #30 tablet 10/02/17 Unknown Rx Penicillin V Potassium 500 mg PO QID #30 tablet 10/10/17 Unknown Rx Triamterene/Hydrochlorothiazid 1 each PO QDAY #30 capsule 10/10/17 Unknown Rx [Dyazide 37.5-25 Capsule] amLODIPine 5 mg PO DAILY #30 tab 10/10/17 Unknown Rx Allergies Allergy/AdvReac Type Severity Reaction Status Date / Time No Known Allergies Allergy Verified 11/04/20 17:28 ED Review of Systems ROS: Stated complaint: HIGH BLOOD SUGAR Other details as noted in HPI Comment: All other systems reviewed and negative ED Past Medical Hx - Past Medical History Hx Hypertension: Yes (out of meds) Hx Psychiatric Treatment: Yes (ANXIETY) - Social History Smoking Status: Current Every Day Smoker Substance Use Type: Alcohol - Medications Home Medications: Home Medications Medication Instructions Recorded Confirmed Last Taken Type Enoxaparin 100 mg SUB-Q ONCE #10 syringe 04/01/17 Unknown Rx Sulfamethoxazole/Trimethoprim 1 each PO BID #20 tablet 04/01/17 Unknown Rx [Bactrim DS TAB] cephALEXin [Keflex] 500 mg PO Q12HR #20 cap 04/01/17 Unknown Rx HYDROcodone/APAP 5-325 [[place] 1 each PO Q6HR PRN #10 tablet 04/02/17 Unknown Rx 5/325] Acetaminophen [Tylenol Arthritis] 650 mg PO Q6HR PRN #30 tablet.er 10/02/17 Unknown Rx Aspirin [Aspirin BABY CHEW TAB] 81 mg PO QDAY #30 tab.chew 10/02/17 Unknown Rx lisinopriL [Zestril TAB] 40 mg PO QDAY #30 tablet 10/02/17 Unknown Rx Penicillin V Potassium 500 mg PO QID #30 tablet 10/10/17 Unknown Rx Triamterene/Hydrochlorothiazid 1 each PO QDAY #30 capsule 10/10/17 Unknown Rx [Dyazide 37.5-25 Capsule] amLODIPine 5 mg PO DAILY #30 tab 10/10/17 Unknown Rx ED Physical Exam - General Limitations: No Limitations General appearance: alert, in no apparent distress - Head Head exam: Present: atraumatic, normocephalic - Eye Eye exam: Present: normal appearance, PERRL, EOMI. Absent: scleral icterus, conjunctival injection, nystagmus, periorbital swelling, periorbital tenderness Pupils: Present: normal accommodation - ENT ENT exam: Present: mucous membranes moist - Neck Neck exam: Present: normal inspection, full ROM. Absent: meningismus, thyromegaly - Respiratory Respiratory exam: Present: normal lung sounds bilaterally. Absent: respiratory distress, wheezes, rales, accessory muscle use, decreased breath sounds - Cardiovascular Cardiovascular Exam: Present: regular rate, normal rhythm. Absent: systolic murmur, diastolic murmur, rubs, gallop - GI/Abdominal GI/Abdominal exam: Present: soft, normal bowel sounds - Rectal Rectal exam: Present: deferred - Extremities Exam Extremities exam: Present: normal inspection - Back Exam Back exam: Present: normal inspection. Absent: CVA tenderness (R), CVA tenderness (L) - Neurological Exam Neurological exam: Present: alert, oriented X3, CN II-XII intact, normal gait, reflexes normal, other (Gait coordinated and smooth speaks in full sentences no ataxia tracks well with eyes). Absent: motor sensory deficit - Psychiatric Psychiatric exam: Present: normal affect, normal mood - Skin Skin exam: Present: warm, dry, intact, normal color. Absent: rash ED Course Vital Signs 11/04/20 17:33 Temperature 99.2 F Pulse Rate 77 Respiratory 18 Rate Blood Pressure 145/71 O2 Sat by Pulse 99 Oximetry ED Medical Decision Making - Lab Data Result diagrams: 11/04/20 18:16 11/04/20 18:16 Critical care attestation.: If time is entered above; I have spent that time in minutes in the direct care of this critically ill patient, excluding procedure time. ED Disposition Clinical Impression: Hyperglycemia Disposition: DC-01 TO HOME OR SELFCARE Is pt being admited?: No Does the pt Need Aspirin: No Condition: Stable Instructions: Hyperglycemia Additional Instructions: Labs indicated a glucose of 194. Recommended she follow-up with a primary care provider to obtain a hemoglobin A1c and likely reevaluation of your glucose. At this time I will refrain from eating sugary foods and drinking sugary drinks and and healthy meals until follow-up with your primary care provider for reevaluation. Also is it is it is recommended that you obtain an eye examination due to your changes in vision that you have been noticing over the past several days. Referrals: PRIMARY CARE [Primary Care Provider] - 3-5 Days [facility] [Provider Group] - 3-5 Days
[2020-11-04 18:25] LABS: Basophils % (Auto) 0.4 % (0.0-1.8); Eosinophils # (Auto) 0.2 K/mm3 (0.0-0.4); Eosinophils % (Auto) 2.6 % (0.0-4.3); Hematocrit 41.1 % (35.5-45.6); Hemoglobin 14.1 gm/dl (11.8-15.2); Lymphocytes # (Auto) 3.2 K/mm3 (1.2-5.4); Lymphocytes % (Auto) 43.2 % (13.4-35.0); Mean Corpuscular HGB Conc 34 % (32-34); Mean Corpuscular Volume 88 fl (84-94); Monocytes # (Auto) 0.8 K/mm3 (0.0-0.8); Monocytes % (Auto) 10.4 % (0.0-7.3); Platelet Count 243 K/mm3 (140-440); Red Blood Count 4.65 M/mm3 (3.65-5.03); Red Cell Distribution Width 13.9 % (13.2-15.2)
[2020-11-04 18:48] LABS: Alanine Aminotransferase 43 units/L (7-56); Albumin 4.4 g/dL (3.9-5); BUN/Creatinine Ratio 12; Blood Urea Nitrogen 13 mg/dL (9-20); Calcium 9.2 mg/dL (8.4-10.2); Hemolysis Index 9
== END 2020-11-04 20:10 | disposition home or self-care (01) ==
LOC: ED 17:26
DX: R73.9 Hyperglycemia, unspecified (principal); I10 Essential (primary) hypertension; F41.9 Anxiety disorder, unspecified; F17.200 Nicotine dependence, unspecified, uncomplicated; Z79.899 Other long term (current) drug therapy
CPT/HCPCS: 36415; 80053; 82962; 85025